=== PATIENT | male | born 1965 | race American Indian/Alaskan Native ===

== ENCOUNTER 2018-07-16 03:31 | Observation (INO) | payer BC ==
--- NOTE | 2018-07-16 04:01 | Emergency Department Report ---
ED Chest Pain HPI - General Chief Complaint: Chest Pain Stated Complaint: CHEST PAIN Time Seen by Provider: 07/16/18 04:00 Source: patient Mode of arrival: Ambulatory Limitations: No Limitations - History of Present Illness Initial Comments: Patient is a 52-year-old male that presents emergency room via EMS for chest pain. Patient states the chest pain started in his left chest radiating to his neck and left upper extremity. Patient states the pain is improving since being given aspirin and nitroglycerin and route by EMS. Patient states the pain was a 10 out of 10 and now is up proximately a 4 out of 10. Patient states the pain is better with rest and medications. Patient states the pain was worse with exertion. Patient denies shortness of breath. Patient denies fever chills. Patient denies diaphoresis. Patient denies nausea vomiting. Patient denies abdominal pain. Patient states he has high blood pressure, hyperlipidemia, diabetes and is noncompliant with all of his medications. MD Complaint: chest pain -: Sudden Pain Location: substernal, left chest Pain Radiation: LUE, neck Severity: moderate Quality: heaviness, sharp Consistency: constant Improves With: nitroglycerin, medication-other, rest Worsens With: exertion re: denies: nausea, vomting, diaphoresis, dyspnea, sense of impending doom Other Symptoms: denies: cough, fever, syncope, rash, acid taste in mouth, leg swelling, palpitations, burping Treatments Prior to Arrival: aspirin, nitroglycerin Aspirin use within the Past 7 Days: (0) No - Related Data On Oral Contraceptives: No Allergies Allergy/AdvReac Type Severity Reaction Status Date / Time No Known Allergies Allergy Verified 07/16/18 04:01 Heart Score - HEART Score History: Moderately suspicious EKG: Non-specific Age: 45-65 Risk factors: 1-2 risk factors Troponin: < normal limit HEART Score: 4 ED Review of Systems ROS: Stated complaint: CHEST PAIN Other details as noted in HPI Constitutional: denies: chills, fever Eyes: denies: eye pain, eye discharge, vision change ENT: denies: ear pain, throat pain Respiratory: denies: cough, shortness of breath, wheezing Cardiovascular: chest pain. denies: palpitations Endocrine: no symptoms reported Gastrointestinal: denies: abdominal pain, nausea, diarrhea Genitourinary: denies: urgency, dysuria Musculoskeletal: denies: back pain, joint swelling, arthralgia Skin: denies: rash, lesions Neurological: denies: headache, weakness, paresthesias Psychiatric: denies: anxiety, depression Hematological/Lymphatic: denies: easy bleeding, easy bruising ED Past Medical Hx - Past Medical History Previous Medical History?: Yes Hx Diabetes: Yes - Surgical History Past Surgical History?: No - Family History Family history: hypertension - Social History Smoking Status: Never Smoker Substance Use Type: Alcohol ED Physical Exam - General Limitations: No Limitations General appearance: alert, in no apparent distress - Head Head exam: Present: atraumatic, normocephalic - Eye Eye exam: Present: normal appearance - ENT ENT exam: Present: mucous membranes moist - Neck Neck exam: Present: normal inspection - Respiratory Respiratory exam: Present: normal lung sounds bilaterally. Absent: respiratory distress - Cardiovascular Cardiovascular Exam: Present: regular rate, normal rhythm. Absent: systolic murmur, diastolic murmur, rubs, gallop - GI/Abdominal GI/Abdominal exam: Present: soft, normal bowel sounds - Rectal Rectal exam: Present: deferred - Extremities Exam Extremities exam: Present: normal inspection - Back Exam Back exam: Present: normal inspection - Neurological Exam Neurological exam: Present: alert, oriented X3 - Psychiatric Psychiatric exam: Present: normal affect, normal mood - Skin Skin exam: Present: warm, dry, intact, normal color. Absent: rash ED Course Vital Signs 07/16/18 07/16/18 07/16/18 03:42 03:45 03:46 Temperature 98 F Pulse Rate 85 87 86 Respiratory 12 16 18 Rate Blood Pressure 151/85 177/85 O2 Sat by Pulse 98 95 97 Oximetry 07/16/18 07/16/18 07/16/18 03:51 04:00 04:15 Temperature Pulse Rate 89 78 Respiratory 20 9 L 10 L Rate Blood Pressure 160/82 142/81 O2 Sat by Pulse 95 97 Oximetry 07/16/18 07/16/18 07/16/18 04:31 04:45 05:00 Temperature Pulse Rate 81 76 Respiratory 10 L 13 Rate Blood Pressure 125/67 128/73 133/77 O2 Sat by Pulse 97 98 96 Oximetry 07/16/18 07/16/18 05:15 05:31 Temperature Pulse Rate Respiratory Rate Blood Pressure 123/84 156/89 O2 Sat by Pulse 95 97 Oximetry - Reevaluation(s) Reevaluation #1: Discussed all results with patient. Discussed plan of care with patient. Patient agrees with plan of care and admission. Patient admitted to the hospitalist service. 07/16/18 06:13 - Consultations Consultation #1: Dr. Gunter consulted for admission. Dr. Gunter to assume care. 07/16/18 06:13 SUDHA score - Sudha Score Age > 65: (0) No Aspirin use within the Past 7 Days: (0) No 3 or more CAD Risk Factors: (0) No 2 or more Angina events in past 24 hrs: (0) No Known CAD with more than 50% Stenosis: (0) No Elevated Cardiac Markers: (0) No ST Deviation Greater than 0.5mm: (0) No SUDHA Score: 0 ED Medical Decision Making - Lab Data Result diagrams: 07/16/18 04:08 07/16/18 04:08 - EKG Data -: EKG Interpreted by Me EKG shows normal: sinus rhythm, axis, intervals, QRS complexes, ST-T waves Rate: normal - Radiology Data Radiology results: image reviewed interpreted by me: No acute findings on cxr - Medical Decision Making Patient is a 52-year-old male presents to emergency room with chest pain. Patient stated the chest pain is radiating to his left neck and arm. Patient has improved with therapy. Patient will be admitted to the hospital service for further evaluation treatment. - Differential Diagnosis cp. acs. anx. Medication noncompliance. Hypertension. Diabetes. Critical care attestation.: If time is entered above; I have spent that time in minutes in the direct care of this critically ill patient, excluding procedure time. ED Disposition Clinical Impression: Chest pain Qualifiers: Chest pain type: unspecified Qualified Code(s): R07.9 - Chest pain, unspecified Disposition: OP ADMIT IP TO THIS HOSP Is pt being admited?: Yes Does the pt Need Aspirin: No Condition: Serious Referrals: PRIMARY CARE,MD [Primary Care Provider] - 3-5 Days Time of Disposition: 06:14
[2018-07-16] MEDS: ASPIRIN PO ONE ×2 (04:03→04:04)
[2018-07-16 04:24] LABS: Basophils % (Auto) 0.4 % (0.0-1.8); Eosinophils # (Auto) 0.1 K/mm3 (0.0-0.4); Hematocrit 39.6 % (35.5-45.6); Hemoglobin 13.5 gm/dl (11.8-15.2); Lymphocytes # (Auto) 2.1 K/mm3 (1.2-5.4); Lymphocytes % (Auto) 35.2 % (13.4-35.0); Mean Corpuscular HGB Conc 34 % (32-34); Mean Corpuscular Hemoglobin 30 pg (28-32); Mean Corpuscular Volume 87 fl (84-94); Monocytes # (Auto) 0.5 K/mm3 (0.0-0.8); Monocytes % (Auto) 8.7 % (0.0-7.3); Platelet Count 208 K/mm3 (140-440); Red Blood Count 4.54 M/mm3 (3.65-5.03); Red Cell Distribution Width 12.6 % (13.2-15.2)
[2018-07-16 06:03] LABS: BUN/Creatinine Ratio 11; Blood Urea Nitrogen 10 mg/dL (9-20); Hemolysis Index 6
[2018-07-16] MEDS ORDERED: MORPHINE IV ONE (06:11)
--- NOTE | 2018-07-16 06:36 | XRay Report ---
FINAL REPORT PROCEDURE: XR CHEST 1V AP TECHNIQUE: Chest radiograph anteroposterior view. CPT 69501 HISTORY: cp COMPARISON: No prior studies are available for comparison. FINDINGS: Heart: Normal. Mediastinum/Vessels: Normal. Lungs/Pleural space: Normal. Bony thorax: No acute osseous abnormality. Life support devices: None. IMPRESSION: No acute cardiopulmonary abnormality.
[2018-07-16] MEDS ORDERED: MORPHINE ONE (07:19)
[2018-07-16] MEDS ORDERED: SODIUM CHLORIDE FLUSH SYRINGE 10 ML IV PRN ×2 (07:26→08:00)
[2018-07-16] MEDS ORDERED: TYLENOL PO PRN (07:26)
--- NOTE | 2018-07-16 07:44 | History and Physical Report ---
History of Present Illness Date of examination: 07/16/18 Date of admission: 07/16/18 06:19 Chief complaint: Chest pain History of present illness: Patient is a 52-year-old male with history of hypertension, hyperlipidemia and diabetes unfortunately not taken any medication who presents to the hospital following chest pain that has been ongoing for about a week and has not improved. The patient reports that it was worsening patellar tendon intensity but now down to 4/10 in intensity since receiving nitroglycerin and aspirin. Medication. 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 The patient reports the pain is located on the left posterior neck and radiates down to his left arm. Has been constant as mentioned above. Cramping in nature with no aggravating or alleviating factors. He denies any shortness of breath, nausea vomiting or diarrhea. He denies any tobacco use, he drinks only socially and does not binge drink. He denies any personal history of heart disease reports possible family history of heart disease but will not show. He reports that he was diagnosed with diabetes a few years ago but has not been compliant with any medication. ROS Constitutional: No fever, fatigue or weight loss. Skin: No rash. Eyes: No recent vision problems or eye pain. ENT: No congestion, ear pain, or sore throat. Endocrine: No thyroid problems. Cardiovascular: Chest pain. Respiratory: No cough, shortness of breath, congestion, or wheezing. Gastrointestinal: No abdominal pain, nausea, vomiting, or diarrhea. Genitourinary: No dysuria. Musculoskeletal: No joint swelling. Neurologic: No seizures. Hematologic: No unusual bruising or bleeding. Psychiatric: No psychiatric problems, hallucinations or depression. All other systems reviewed and otherwise negative. Past History Past Medical History: diabetes, hypertension, hyperlipidemia Past Surgical History: No surgical history Social history: lives with family Family history: CAD Medications and Allergies Allergies Allergy/AdvReac Type Severity Reaction Status Date / Time No Known Allergies Allergy Verified 07/16/18 04:01 Active Meds: Active Medications Acetaminophen (Tylenol) 650 mg PO Q4H PRN PRN Reason: Pain MILD(1-3)/Fever >100.5/CARROLL Aspirin (Baby Aspirin) 81 mg PO QDAY SARAH Atorvastatin Calcium (Lipitor) 40 mg PO QHS SARAH Dextrose (D50w (25gm) Syringe) 50 ml IV PRN PRN PRN Reason: Hypoglycemia Insulin Human Lispro (Humalog) 0 unit SUB-Q ACHS SARAH; Protocol Lisinopril (Zestril) 20 mg PO QDAY SARAH Ondansetron HCl (Zofran) 4 mg IV Q8H PRN PRN Reason: Nausea And Vomiting Sodium Chloride (Sodium Chloride Flush Syringe 10 Ml) 10 ml IV PRN PRN PRN Reason: LINE FLUSH Sodium Chloride (Sodium Chloride Flush Syringe 10 Ml) 10 ml IV BID SARAH Sodium Chloride (Sodium Chloride Flush Syringe 10 Ml) 10 ml IV PRN PRN PRN Reason: LINE FLUSH Exam - Physical Exam Narrative exam: VITAL SIGNS: Reviewed. GENERAL: The patient appeared well nourished and normally developed. Vital signs as documented. HEAD: No signs of head trauma. EYES: Pupils are equal. Extraocular motions intact. EARS: Hearing grossly intact. MOUTH: Oropharynx is normal. NECK: No adenopathy, no JVD. CHEST: Chest with clear breath sounds bilaterally. No wheezes, rales, or rhonchi. CARDIAC: Regular rate and rhythm. S1 and S2, without murmurs, gallops, or rubs. VASCULAR: No Edema. Peripheral pulses normal and equal in all extremities. ABDOMEN: Soft, without detectable tenderness. No sign of distention. No rebound or guarding, and no masses palpated. Bowel Sounds normal. MUSCULOSKELETAL: Good range of motion of all major joints. Extremities without clubbing, cyanosis or edema. NEUROLOGIC EXAM: Alert and oriented x 3. No focal sensory or strength deficits. Speech normal. Follows commands. PSYCHIATRIC: Mood normal. SKIN: No rash or lesions. - Constitutional Vitals: Temp Pulse Resp BP Pulse Ox 98 F 76 13 151/88 98 07/16/18 03:46 07/16/18 04:45 07/16/18 04:45 07/16/18 06:45 07/16/18 06:45 Results - Labs CBC & Chem 7: 07/16/18 04:08 07/16/18 04:08 Labs: Laboratory Last Values WBC 6.0 K/mm3 (4.5-11.0) 07/16/18 04:08 RBC 4.54 M/mm3 (3.65-5.03) 07/16/18 04:08 Hgb 13.5 gm/dl (11.8-15.2) 07/16/18 04:08 Hct 39.6 % (35.5-45.6) 07/16/18 04:08 MCV 87 fl (84-94) 07/16/18 04:08 MCH 30 pg (28-32) 07/16/18 04:08 MCHC 34 % (32-34) 07/16/18 04:08 RDW 12.6 % (13.2-15.2) L 07/16/18 04:08 Plt Count 208 K/mm3 (140-440) 07/16/18 04:08 Lymph % (Auto) 35.2 % (13.4-35.0) H 07/16/18 04:08 [place] % (Auto) 8.7 % (0.0-7.3) H 07/16/18 04:08 Eos % (Auto) 2.0 % (0.0-4.3) 07/16/18 04:08 Baso % (Auto) 0.4 % (0.0-1.8) 07/16/18 04:08 Lymph # 2.1 K/mm3 (1.2-5.4) 07/16/18 04:08 [place] # 0.5 K/mm3 (0.0-0.8) 07/16/18 04:08 Eos # 0.1 K/mm3 (0.0-0.4) 07/16/18 04:08 Baso # 0.0 K/mm3 (0.0-0.1) 07/16/18 04:08 Seg Neutrophils % 53.7 % (40.0-70.0) 07/16/18 04:08 Seg Neutrophils # 3.2 K/mm3 (1.8-7.7) 07/16/18 04:08 Sodium 136 mmol/L (137-145) L 07/16/18 04:08 Potassium 4.3 mmol/L (3.6-5.0) 07/16/18 04:08 Chloride 100.0 mmol/L (98-107) 07/16/18 04:08 Carbon Dioxide 26 mmol/L (22-30) 07/16/18 04:08 Anion Gap 14 mmol/L 07/16/18 04:08 BUN 10 mg/dL (9-20) 07/16/18 04:08 Creatinine 0.9 mg/dL (0.8-1.5) 07/16/18 04:08 Estimated GFR > 60 ml/min 07/16/18 04:08 BUN/Creatinine Ratio 11 % 07/16/18 04:08 Glucose 299 mg/dL (75-100) H 07/16/18 04:08 Calcium 9.0 mg/dL (8.4-10.2) 07/16/18 04:08 Troponin T < 0.010 ng/mL (0.00-0.029) 07/16/18 04:08 - Imaging and Cardiology Chest x-ray: image reviewed (no acute pathology) Assessment and Plan Assessment and plan: Patient is a 52-year-old male with history of hypertension, hyperlipidemia and diabetes unfortunately not taken any medication who presents to the hospital following chest pain that has been ongoing for about a week and has not improved. The patient reports that it was worsening patellar tendon intensity but now down to 4/10 in intensity since receiving nitroglycerin and aspirin. Medication. 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 The patient reports the pain is located on the left posterior neck and radiates down to his left arm. Has been constant as mentioned above. Cramping in nature with no aggravating or alleviating factors. He denies any shortness of breath, nausea vomiting or diarrhea. He denies any tobacco use, he drinks only socially and does not binge drink. He denies any personal history of heart disease reports possible family history of heart disease but will not show. He reports that he was diagnosed with diabetes a few years ago but has not been compliant with any medication. Atypical chest pain possible musculoskeletal in nature Uncontrolled diabetes mellitus Hypertension Hyperlipidemia Noncompliance with medications Plan We'll admit the patient to telemetry, supportive care, EKG reviewed shows normal sinus rhythm. Chest pain protocol and the patient was unable to score Check lipid profile Obtain a check hemoglobin A1c stress test Stress test is negative patient will be discharged provided extensive counseling to the patient and need to be compliant with medications. Patient will require him prescription of metformin and lisinopril for blood pressure control and diabetes respectively. We'll also need a statin medication and follow-up with primary care physician as discussed He verbalized understanding. DVT and GI prophylaxis Advance Directives: Yes Plan of care discussed with patient/family: Yes
[2018-07-16 07:57] LABS: Basophils % (Auto) 0.6 % (0.0-1.8); Eosinophils # (Auto) 0.1 K/mm3 (0.0-0.4); Eosinophils % (Auto) 1.8 % (0.0-4.3); Hematocrit 40.6 % (35.5-45.6); Hemoglobin 13.6 gm/dl (11.8-15.2); Lymphocytes # (Auto) 2.6 K/mm3 (1.2-5.4); Lymphocytes % (Auto) 37.2 % (13.4-35.0); Mean Corpuscular HGB Conc 34 % (32-34); Mean Corpuscular Hemoglobin 29 pg (28-32); Mean Corpuscular Volume 88 fl (84-94); Monocytes # (Auto) 0.5 K/mm3 (0.0-0.8); Monocytes % (Auto) 7.3 % (0.0-7.3); Platelet Count 214 K/mm3 (140-440); Red Blood Count 4.62 M/mm3 (3.65-5.03); Red Cell Distribution Width 12.8 % (13.2-15.2)
[2018-07-16] MEDS ORDERED: ZOFRAN IV PRN (08:00)
[2018-07-16] MEDS ORDERED: HumaLOG SUB-Q SCH (08:00)
[2018-07-16] MEDS ORDERED: D50W (25GM) Syringe IV PRN (08:00)
[2018-07-16 08:22] LABS: BUN/Creatinine Ratio 11; Blood Urea Nitrogen 9 mg/dL (9-20); Calcium 8.9 mg/dL (8.4-10.2); Hemolysis Index 18
[2018-07-16 08:26] LABS: Chol/HDL Ratio 5.34 %
[2018-07-16] MEDS ORDERED: LEXISCAN IV ONE ×2 (09:44→09:48)
[2018-07-16] MEDS ORDERED: CATAPRES PO ONE ×2 (09:59→10:15)
[2018-07-16] MEDS ORDERED: ZESTRIL PO SCH (10:00)
[2018-07-16] MEDS ORDERED: SODIUM CHLORIDE FLUSH SYRINGE 10 ML IV SCH (10:00)
[2018-07-16] MEDS ORDERED: CATAPRES ONE (10:05)
[2018-07-16 14:29] VITALS: BP 157/79
--- NOTE | 2018-07-16 14:47 | Event Note ---
Date: 07/16/18 s/p lexiscan MPI stress test this AM which was negative for ischemia, EF 43%. Echocardiogram recommended for further evaluation of LVEF. D/w Dr. Angel. Echo ordered. Pt was discharged prior to obtaining echo. Yee TORRES NP / DR. ERICK MALDONADO
--- NOTE | 2018-07-16 17:53 | Discharge Summary ---
Providers - Providers Date of Admission: 07/16/18 06:19 Attending physician: CORNELIUS SIM MD 07/16/18 Consult to Cardiac Rehabilitation [CONS] Routine Reason For Exam: Phase I Primary care physician: DEPUTY PROGRAM MANAGER Hospitalization Reason for admission: CHEST PAIN Condition: Serious Hospital course: Patient is a 52-year-old male with history of hypertension, hyperlipidemia and diabetes unfortunately not taken any medication who presents to the hospital following chest pain that has been ongoing for about a week and has not improved. The patient reports that it was worsening patellar tendon intensity but now down to 4/10 in intensity since receiving nitroglycerin and aspirin. Medication. 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 The patient reports the pain is located on the left posterior neck and radiates down to his left arm. Has been constant as mentioned above. Cramping in nature with no aggravating or alleviating factors. He denies any shortness of breath, nausea vomiting or diarrhea. He denies any tobacco use, he drinks only socially and does not binge drink. He denies any personal history of heart disease reports possible family history of heart disease but will not show. He reports that he was diagnosed with diabetes a few years ago but has not been compliant with any medication. The patient proceeded to have a stress test which was negative for ischemia EF of 43% on echocardiogram was recommended in house and discussed with the right there. It was also ordered Unfortunately the patient had been discharged. The patient was called and informed about the need for echocardiogram and to follow-up with cardiology he verbalized understanding. Patient was also advised about diabetes diagnosis which she is well aware of and medication compliance was discussed risk of non- adherence to medication recommendations were also discussed in detail. Again he verbalized understanding Atypical chest pain likely costochondritis Uncontrolled diabetes mellitus Hyperlipidemia Hypertension Nonischemic cardiomyopathy with EF of 43% Disposition: DC-01 TO HOME OR SELFCARE Time spent for discharge: 35 MINS Core Measure Documentation - Palliative Care Palliative Care/ Comfort Measures: Not Applicable - Core Measures Any of the following diagnoses?: none - VTE Discharge Requirements Deep Vein Thrombosis/Pulmonary Embolism Present on Admission: No Exam - Physical Exam Narrative exam: VITAL SIGNS: Reviewed. GENERAL: The patient appeared well nourished and normally developed. Vital signs as documented. HEAD: No signs of head trauma. EYES: Pupils are equal. Extraocular motions intact. EARS: Hearing grossly intact. MOUTH: Oropharynx is normal. NECK: No adenopathy, no JVD. CHEST: Chest with clear breath sounds bilaterally. No wheezes, rales, or rhonchi. CARDIAC: Regular rate and rhythm. S1 and S2, without murmurs, gallops, or rubs. VASCULAR: No Edema. Peripheral pulses normal and equal in all extremities. ABDOMEN: Soft, without detectable tenderness. No sign of distention. No rebound or guarding, and no masses palpated. Bowel Sounds normal. MUSCULOSKELETAL: Good range of motion of all major joints. Extremities without clubbing, cyanosis or edema. NEUROLOGIC EXAM: Alert and oriented x 3. No focal sensory or strength deficits. Speech normal. Follows commands. PSYCHIATRIC: Mood normal. SKIN: No rash or lesions. - Constitutional Vitals: Temp Pulse Resp BP Pulse Ox 98.5 F 78 20 205/105 100 07/16/18 13:00 07/16/18 10:09 07/16/18 08:33 07/16/18 10:09 07/16/18 08:33 Plan Follow up with: PRIMARY MD VANCE [Primary Care Provider] - 3-5 Days LIBIA LAWRENCE MD [Staff Physician] - 7 Days ZACH VALENTIN MD [Staff Physician] - 7 Days Prescriptions: Simvastatin [Zocor TAB] 40 mg PO QHS #30 tablet Aspirin [Aspirin BABY CHEW TAB] 81 mg PO QDAY #30 tab.chew Lisinopril [Zestril TAB] 20 mg PO QDAY #30 tablet metFORMIN [Glucophage] 850 mg PO BID #60 tablet Other Discharge Orders: Glucometer supplies[Amb] Location: None Selected Glucometer (Amb) Location: None Selected
--- NOTE | 2018-07-16 22:25 | Treadmill Report ---
NUCLEAR STRESS TEST REPORT DESCRIPTION OF PROCEDURE: The patient was brought to the Cardiology lab. The patient underwent a pharmacologic stress test with administration of Lexiscan. The patient tolerated the procedure well. Post-stress images reveal fairly homogeneous distribution of the isotope with no significant reversibility during rest to indicate ischemia. Accompanying gated study shows mild left ventricular systolic dysfunction, calculated ejection fraction is noted to be 43%. Visually, it looks worse than that. However, the patient may need an echocardiogram to confirm the left ventricular systolic function. IMPRESSION: 1. Nuclear stress test is negative for significant ischemia. 2. Left ventricular systolic dysfunction with a calculated ejection fraction of 43%. 3. Suggest clinical correlation. JOB# [id number] KB/NTS
[2018-07-17] MEDS ORDERED: BABY ASPIRIN PO SCH (10:00)
== END 2018-07-16 14:00 | disposition home or self-care (01) ==
LOC: ED 03:31 → INTOOBSV 06:19 → 4A 06:19
PROVIDERS: ADMIT Internal Medicine; ATTEND Internal Medicine
DX: R07.89 Other chest pain (principal); E11.65 Type 2 diabetes mellitus with hyperglycemia; I10 Essential (primary) hypertension; E78.5 Hyperlipidemia, unspecified; Z91.14 Patient's other noncompliance with medication regimen; Z82.49 Family history of ischemic heart disease and other diseases of the circulatory system; Z79.899 Other long term (current) drug therapy
CPT/HCPCS: 36415; 71045; 78452; 80048; 80061; 83036; 84484; 85025; 93005; 93010; 93017; 96374; 99285; A9502; G0378; J2270; J2785; 96375

== ENCOUNTER 2019-02-17 19:15 | Emergency (ER) | payer OTHER, BC ==
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
[2019-02-17] MEDS ORDERED: IBUPROFEN PO ONE ×2 (20:10→20:12)
--- NOTE | 2019-02-17 21:28 | XRay Report ---
PROCEDURE: XR SPINE LUMBOSACRAL 2-3V TECHNIQUE: Lumbar spine radiographs, two views. HISTORY: low back pain COMPARISONS: None . FINDINGS: Alignment: Normal . Vertebral body heights/Disk spaces: Normal . Fracture(s): None . Facets: Normal . Bone mineralization: Normal . IMPRESSION: Normal Examination . This document is electronically signed by Tonio Priest MD., February 17 2019 09:26:38 PM ET
[2019-02-17] MEDS ORDERED: ROBAXIN PO ONE (22:05)
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
[2019-02-17 23:05] VITALS: BP 200/110
== END 2019-02-17 23:06 | disposition home or self-care (01) ==
LOC: ED 19:15
DX: S39.012A Strain of muscle, fascia and tendon of lower back, initial encounter (principal); I10 Essential (primary) hypertension; E11.9 Type 2 diabetes mellitus without complications; V49.49XA Driver injured in collision with other motor vehicles in traffic accident, initial encounter; Y93.89 Activity, other specified; Y92.488 Other paved roadways as the place of occurrence of the external cause; Y99.8 Other external cause status
CPT/HCPCS: 72100